=== PATIENT | female | born 1985 | race Caucasian/White ===

== ENCOUNTER 2023-11-25 14:54 | Emergency (ER) | payer OTHER ==
[2023-11-25 15:04] VITALS: BP 102/62; PULSE 73; RESP 20; TEMP 98.1; BMI 23.8
[2023-11-25 15:52] LABS: HEMATOCRIT 36.8 % (32.4-45.2); HEMOGLOBIN 12.5 GM/dL (10.7-15.3); MCH 31.8 pg (25.7-33.7); MCHC 33.9 g/dl (32.0-36.0); MEAN CELL VOLUME 93.6 fl (80-96); MEAN PLT VOLUME 9.7 fl (7.5-11.1); PLATELET COUNT 259 10^3/uL (134-434); RBC 3.93 M/mm3 (3.60-5.2); RDW 14.4 % (11.6-15.6)
[2023-11-25 16:02] LABS: PH,URINE 6.5 (5.0-8.0); URINE APPEARANCE CLEAR; URINE BILIRUBIN NEGATIVE (NEGATIVE); URINE COLOR YELLOW; URINE GLUCOSE (UA) NEGATIVE (NEGATIVE); URINE KETONE NEGATIVE (NEGATIVE); URINE LEUK ESTERASE NEGATIVE (NEGATIVE); URINE NITRITE NEGATIVE (NEGATIVE); URINE PROTEIN NEGATIVE (NEGATIVE)
[2023-11-25 16:14] LABS: POTASSIUM 4.4 mmol/L (3.5-5.1)
[2023-11-25 16:16] LABS: CALCIUM 9.1 mg/dL (8.5-10.1)
[2023-11-25 16:17] LABS: ALBUMIN 3.5 g/dl (3.4-5.0); BLOOD UREA NITROGEN 7.9 mg/dL (7-18)
[2023-11-25 16:22] LABS: BILIRUBIN,TOTAL 0.4 mg/dL (0.2-1); CREATININE 0.7 mg/dL (0.55-1.3); TOT PROT 7.1 g/dl (6.4-8.2)
== END 2023-11-25 19:42 | disposition home or self-care (01) ==
LOC: JER 14:54
DX: O20.9 Hemorrhage in early pregnancy, unspecified (principal); Z3A.09 9 weeks gestation of pregnancy
CPT/HCPCS: 36415; 76817-TC; 80053; 81003; 84702; 85027; 87086; 99284-25

== ENCOUNTER 2023-12-12 19:59 | Emergency (ER) | payer OTHER ==
[2023-12-12 20:13] VITALS: BP 108/60; PULSE 53; RESP 18; TEMP 98.4; BMI 24.8
[2023-12-12] MEDS: SODIUM CHLORIDE 0.9% 500 ML INFUS.BAG IV ONE (21:58)
[2023-12-12] MEDS: METOCLOPRAMIDE HCL INJECTION 10 MG/2 ML VIAL IVPUSH ONE (21:59)
[2023-12-12] MEDS: FAMOTIDINE 20 MG/50 ML IVPB 20 MG/50 ML MG IVPB ONE (21:59)
[2023-12-12] MEDS ORDERED: FAMOTIDINE 20 MG/50 ML IVPB 20 MG/50 ML MG IVPB ONE (22:02)
[2023-12-12] MEDS ORDERED: METOCLOPRAMIDE HCL INJECTION 10 MG/2 ML VIAL ONE (22:02)
[2023-12-12 22:20] LABS: EPI CELLS 26 /uL (0-25.1); HYALINE CASTS 3 /uL (0-3.1); PH,URINE 5.5 (5.0-8.0); URINE APPEARANCE CLEAR; URINE BACTERIA 253 /uL (0-1359); URINE BILIRUBIN 1+ (NEGATIVE); URINE COLOR DK YELLOW; URINE GLUCOSE (UA) NEGATIVE (NEGATIVE); URINE KETONE 4+ (NEGATIVE); URINE LEUK ESTERASE NEGATIVE (NEGATIVE); URINE NITRITE NEGATIVE (NEGATIVE); URINE PROTEIN 1+ (NEGATIVE); URINE WBC 39 /uL (0-25.8)
[2023-12-12 22:31] LABS: BASO % 0.3 % (0-2.0); EOS % 0.1 % (0-4.5); HEMATOCRIT 41.6 % (32.4-45.2); HEMOGLOBIN 14.4 GM/dL (10.7-15.3); LYMPH % 6.9 % (8-40); MCH 31.8 pg (25.7-33.7); MCHC 34.5 g/dl (32.0-36.0); MEAN CELL VOLUME 92.1 fl (80-96); MEAN PLT VOLUME 9.9 fl (7.5-11.1); NEUT % 85.7 % (42.8-82.8); PLATELET COUNT 268 10^3/uL (134-434); RBC 4.52 M/mm3 (3.60-5.2); WHITE BLOOD COUNT 7.9 K/mm3 (4.0-10.0)
[2023-12-12 22:53] LABS: POTASSIUM 4.4 mmol/L (3.5-5.1)
[2023-12-12 22:56] LABS: ALBUMIN 3.8 g/dl (3.4-5.0); BLOOD UREA NITROGEN 7.4 mg/dL (7-18); CALCIUM 9.5 mg/dL (8.5-10.1)
[2023-12-12 22:59] LABS: CREATININE 0.7 mg/dL (0.55-1.3)
[2023-12-12 23:00] LABS: BILIRUBIN,TOTAL 0.5 mg/dL (0.2-1)
[2023-12-12] MEDS: DEXTROSE 5%-NORMAL SALINE 500 ML IV ONE (23:24)
[2023-12-12 23:34] LABS: URINE RBC 22.2 /uL (0-23.9)
== END 2023-12-13 00:38 | disposition home or self-care (01) ==
LOC: JER 19:59
PROC: 3E033GC Introduction of Other Therapeutic Substance into Peripheral Vein, Percutaneous Approach (ICD-10-PCS; principal; 2023-12-12)
PROC: 3E033GC Introduction of Other Therapeutic Substance into Peripheral Vein, Percutaneous Approach (ICD-10-PCS; 2023-12-12)
DX: O09.521 Supervision of elderly multigravida, first trimester (principal); O21.9 Vomiting of pregnancy, unspecified; O26.891 Other specified pregnancy related conditions, first trimester; R10.13 Epigastric pain; R10.30 Lower abdominal pain, unspecified; O99.891 Other specified diseases and conditions complicating pregnancy; M54.9 Dorsalgia, unspecified; Z3A.12 12 weeks gestation of pregnancy
CPT/HCPCS: 36415; 76801-TC; 80053; 81003; 84702; 85025; 87086; 99284-25

== ENCOUNTER 2024-06-07 08:44 | Inpatient (IN) | payer OTHER ==
[2024-06-07] MEDS: DEXTROSE 5%-LACTATED RINGERS 1,000 ML IV SCH (10:45)
[2024-06-07 11:31] VITALS: BMI 28.1
[2024-06-07 12:00] LABS: BASO % 1.4 % (0-2.0); EOS % 1.3 % (0-4.5); HEMATOCRIT 35.3 % (32.4-45.2); HEMOGLOBIN 11.7 GM/dL (10.7-15.3); LYMPH % 25.5 % (8-40); MCH 29.2 pg (25.7-33.7); MCHC 33.3 g/dl (32.0-36.0); MEAN CELL VOLUME 87.7 fl (80-96); MEAN PLT VOLUME 10.3 fl (7.5-11.1); MONO % 6.7 % (3.8-10.2); NEUT % 65.1 % (42.8-82.8); PLATELET COUNT 246 10^3/uL (134-434); RBC 4.02 M/mm3 (3.60-5.2); RDW 14.1 % (11.6-15.6); WHITE BLOOD COUNT 6.4 K/mm3 (4.0-10.0)
[2024-06-07 12:05] LABS: INR 0.95 (0.83-1.09); PROTHROMBIN TIME (PATIENT) 10.8 SEC (9.7-13.0)
[2024-06-07 12:08] LABS: ACTIVATED PTT 28.8 SECONDS (25.2-36.5)
[2024-06-07 12:18] LABS: POTASSIUM 3.9 mmol/L (3.5-5.1)
[2024-06-07 12:20] LABS: BLOOD UREA NITROGEN 6.5 mg/dL (7-18); CALCIUM 8.8 mg/dL (8.5-10.1)
[2024-06-07 12:24] LABS: CREATININE 0.5 mg/dL (0.55-1.3)
[2024-06-07] MEDS: DINOPROSTONE 10 MG VAGINAL SUPPOSITORY VG ONE (13:35)
[2024-06-07] MEDS: LACTATED RINGERS SOLUTION 1,000 ML IV SCH (21:52)
[2024-06-08] MEDS: DINOPROSTONE 10 MG VAGINAL SUPPOSITORY VG ONE (03:15)
[2024-06-08] MEDS ORDERED: BUTORPHANOL TARTRATE 1 MG/ML VIAL ONE (03:38)
[2024-06-08] MEDS ORDERED: PROMETHAZINE HCL 25 MG/1 ML VIAL ONE (03:38)
[2024-06-08] MEDS: PROMETHAZINE HCL 25 MG/1 ML VIAL IVPB ONE (03:52)
[2024-06-08] MEDS: BUTORPHANOL TARTRATE 1 MG/ML VIAL IVPUSH PRN (03:52)
[2024-06-08] MEDS ORDERED: FENTANYL CITRATE/PF 50 MCG/ML VIAL ONE (12:49)
[2024-06-08] MEDS ORDERED: FENTANYL/BUPIVACAINE/NS/PF - PCEA - 50 ML DISP.SYRIN EP ONE ×2 (12:58→17:58)
[2024-06-08] MEDS: FENTANYL/BUPIVACAINE/NS/PF - PCEA - 50 ML DISP.SYRIN EP SCH (13:15)
[2024-06-08] MEDS ORDERED: NALOXONE HCL 0.4 MG/ML VIAL IVPUSH PRN (13:27)
[2024-06-08] MEDS ORDERED: OXYTOCIN 30 UNITS in 0.9% NS 30 UNIT/500 ML INFUS.BAG IVPB ONE (16:03)
[2024-06-08] MEDS ORDERED: AMPICILLIN SODIUM 2 GM VIAL ONE (16:03)
[2024-06-08] MEDS: AMPICILLIN - 2 GM in SODIUM CHLORIDE 100 ML IVPB ONE (16:07)
[2024-06-08] MEDS: OXYTOCIN 30 UNITS in 0.9% NS 30 UNIT/500 ML INFUS.BAG IVPB SCH (16:10)
[2024-06-08] MEDS ORDERED: AMPICILLIN SODIUM 1 GM VIAL ONE (20:00)
[2024-06-08] MEDS: AMPICILLIN - 1 GM in SODIUM CHLORIDE 100 ML IVPB SCH (20:09)
[2024-06-08] MEDS ORDERED: OXYTOCIN 20 UNITS in 0.9% NS 20 UNIT/1,000 ML INFUS.BAG IV ONE (20:23)
[2024-06-08] MEDS ORDERED: LIDOCAINE HCL 1% PRESERVATIVE FREE - 30ML VIAL ONE (20:23)
[2024-06-08] MEDS: OXYTOCIN 20 UNITS in 0.9% NS 20 UNIT/1,000 ML INFUS.BAG IV SCH (21:45)
[2024-06-08] MEDS ORDERED: METHYLERGONOVINE MALEATE 0.2 MG/1 ML AMP IM PRN (22:49)
[2024-06-08] MEDS ORDERED: WITCH HAZEL 50% (TUCKS) 40 PAD/JAR PAD TP PRN (22:49)
[2024-06-08] MEDS ORDERED: BISACODYL 10 MG SUPP.RECT RC PRN (22:49)
[2024-06-08] MEDS ORDERED: BENZOCAINE 20% 57 GM BOTTLE TP PRN (22:49)
[2024-06-08] MEDS ORDERED: BENZOCAINE 28 GM HEMORRHOIDAL OINTMENT TP PRN (22:49)
[2024-06-08] MEDS ORDERED: oxyCODONE HCL 5 MG TABLET PO PRN (22:49)
[2024-06-09] MEDS ORDERED: IBUPROFEN 600 MG TABLET (FP) PO ONE (00:15)
[2024-06-09] MEDS: IBUPROFEN 600 MG TABLET (FP) PO PRN (00:20)
[2024-06-09 07:33] LABS: BASO % 0.3 % (0-2.0); EOS % 0.4 % (0-4.5); HEMATOCRIT 32.3 % (32.4-45.2); HEMOGLOBIN 10.5 GM/dL (10.7-15.3); LYMPH % 13.2 % (8-40); MCHC 32.5 g/dl (32.0-36.0); MEAN PLT VOLUME 10.6 fl (7.5-11.1); MONO % 6.1 % (3.8-10.2); PLATELET COUNT 211 10^3/uL (134-434); RBC 3.63 M/mm3 (3.60-5.2); RDW 13.8 % (11.6-15.6); WHITE BLOOD COUNT 13.5 K/mm3 (4.0-10.0)
[2024-06-09] MEDS: FLU VACCINE (FLULAVAL) PF 45 MCG/0.5 ML SYRINGE 2024-2025 IM ONE (09:41)
[2024-06-09 13:46] VITALS: RESP 18
[2024-06-09] MEDS: SENNOSIDES/DOCUSATE COMBO (SENNA PLUS) TABLET (UD) PO PRN (22:38)
[2024-06-10] MEDS: ACETAMINOPHEN 325 MG TABLET (FP) PO PRN (09:17)
[2024-06-10 10:12] VITALS: BP 108/70; PULSE 78; TEMP 97.9
== END 2024-06-10 16:48 | disposition home or self-care (01) | DRG 560 ==
LOC: JDEL 08:44 → JLDR 10:10 → J3W 06-09 00:41
PROVIDERS: ADMIT Obstetrics & Gynecology; ATTEND Obstetrics & Gynecology
PROC: 3E0P7VZ Introduction of Hormone into Female Reproductive, Via Natural or Artificial Opening (ICD-10-PCS; 2024-06-07)
PROC: 10E0XZZ Delivery of Products of Conception, External Approach (ICD-10-PCS; principal; 2024-06-08)
DX: O41.03X0 Oligohydramnios, third trimester, not applicable or unspecified (principal); Z3A.38 38 weeks gestation of pregnancy; Z37.0 Single live birth
CPT/HCPCS: 36415; 59409; 80048; 85025; 85610; 85730; 86780; 86850; 86900; 86901; 90656; G0008